=== PATIENT | female | born 1985 | race Caucasian/White ===

== ENCOUNTER → 2016-06-29 | Outpatient (CLI) | payer OTHER | LOC: MW.CHOBGYN 08:29 | PROVIDERS: ATTEND Nurse Practitioner Women's Health | DX: E03.9 Hypothyroidism, unspecified (principal); R53.83 Other fatigue | CPT/HCPCS: 36415; 82652; 84443 ==

== ENCOUNTER 2018-10-20 02:26 | Emergency (ER) | payer OTHER ==
[2018-10-20] MEDS ORDERED: Albuterol/Ipratropium 3.0-0.5 MG/3 ML Neb Soln ONE (02:29)
[2018-10-20] MEDS ORDERED: Albuterol/Ipratropium 3.0-0.5 MG/3 ML Neb Soln NEB ONE ×2 (02:35)
[2018-10-20] MEDS ORDERED: methylPREDNISolone Sodium Succinate 125 MG/2 ML SDV IM ONE (02:35)
--- NOTE | 2018-10-20 03:26 | CR ---
Indication: Dyspnea, asthma Technique: Chest 1 view Comparison: February 11, 2016 Findings: Cardiovascular and mediastinum: Heart size and vasculature are normal in caliber and appearance. Mediastinum is within normal limits. Lungs and pleural space: Lungs are mildly hyperexpanded. Lungs are clear. No sign of infiltrate or mass. No sign of pleural effusion. No pneumothorax. Bones and soft tissues: No significant findings. Impression: : Hyperexpanded lungs. No focal consolidation. Dictated by Katie Felton MD @ Oct 20 2018 3:24AM Signed by Dr. Katie Felton @ Oct 20 2018 3:25AM
--- NOTE | 2018-10-20 03:44 | EDM.PDOC ---
ED HPI GENERAL MEDICAL PROBLEM - General Chief Complaint: Asthma Stated Complaint: ASTHMA- TROUBLE BREATHING Time Seen by Provider: 10/20/18 03:44 - History of Present Illness INITIAL COMMENTS - FREE TEXT/NARRATIVE: HISTORY AND PHYSICAL: History of present illness: Patient 32-year-old female history of asthma presents with concern shortness of breath and wheezing she denies chest pain fever chills or other complaints Review of systems: As per history of present illness and below otherwise all systems reviewed and negative. Past medical history: As per history of present illness and as reviewed below otherwise noncontributory. Surgical history: As per history of present illness and as reviewed below otherwise noncontributory. Social history: No reported history of drug or alcohol abuse. Family history: As per history of present illness and as reviewed below otherwise noncontributory. Physical exam: HEENT: Atraumatic, normocephalic, pupils reactive, negative for conjunctival pallor or scleral icterus, mucous membranes moist, throat clear, neck supple, nontender, trachea midline. Lungs: Bilateral end expiratory wheezing noted breath sounds equal bilaterally, chest nontender. Heart: S1S2, regular, negative for clicks, rubs, or JVD. Abdomen: Soft, nondistended, nontender. Negative for masses or hepatosplenomegaly. Negative for costovertebral tenderness. Pelvis: Stable nontender. Genitourinary: Deferred. Rectal: Deferred. Extremities: Atraumatic, negative for cords or calf pain. Neurovascular unremarkable. Neuro: Awake, alert, oriented. Cranial nerves II through XII unremarkable. Cerebellum unremarkable. Motor and sensory unremarkable throughout. Exam nonfocal. Diagnostics: Chest x-ray Therapeutics: Albuterol ipratropium nebulizer Solu-Medrol 125 mg Impression: #1 asthmatic exacerbation Definitive disposition and diagnosis as appropriate pending reevaluation and review of above. Treatments [employer] IN[employer]ARD: Reports: Breathing Treatments Chest Pain Score (Numeric/FACES): 4 - Related Data Allergies Allergy/AdvReac Type Severity Reaction Status Date / Time No Known Allergies Allergy Verified 10/20/18 02:33 Home Meds: Home Meds Albuterol Sulfate [Proair Hfa] 1 - 2 puff PO ASDIRECTED 10/20/18 [History] Budesonide/Formoterol [Symbicort 160-4.5 MCG] 1 puff INH DAILY 10/20/18 [History ] Thyroid [[place] Thyroid] 60 mg PO BEDTIME 10/20/18 [History] Past Medical History HEENT History: Reports: None Cardiovascular History: Reports: None Other Cardiovascular History: During . 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 Hematologic History: Reports: None Immunologic History: Reports: None Oncologic (Cancer) History: Reports: None Dermatologic History: Reports: None - Infectious Disease History Infectious Disease History: Reports: None - Past Surgical History Head Surgeries/Procedures: Reports: None Social & Family History - Tobacco Use Smoking Status *Q: Never Smoker - Recreational Drug Use Recreational Drug Use: No ED ROS GENERAL - Review of Systems Review Of Systems: ROS reveals no pertinent complaints other than HPI. ED EXAM, GENERAL - Physical Exam Exam: See Below (See dictation) Course - Vital Signs Last Recorded V/S: Last Vital Signs Temp 35.3 C 10/20/18 02:30 Pulse 90 10/20/18 03:09 Resp 18 10/20/18 03:09 BP 139/91 H 10/20/18 03:09 Pulse Ox 100 10/20/18 03:09 - Orders/Labs/Meds Orders: Active Orders 24 hr Category Date Time Status RT Aerosol Therapy [RC] ASDIRECTED Care 10/20/18 02:35 Active Meds: Medications Discontinued Medications Generic Name Dose Route Start Last Admin Trade Name Rylee PRN Reason Stop Dose Admin Albuterol/Ipratropium Confirm 10/20/18 02:29 10/20/18 02:36 Duoneb 3.0-0.5 Mg/3 Ml Administered 10/20/18 02:30 Not Given Dose 3 ml .ROUTE .STK-MED ONE Albuterol/Ipratropium 3 ml 10/20/18 02:35 10/20/18 02:36 Duoneb 3.0-0.5 Mg/3 Ml NEB 10/20/18 02:36 3 ml ONETIME ONE Administration Albuterol/Ipratropium 3 ml 10/20/18 02:35 10/20/18 03:04 Duoneb 3.0-0.5 Mg/3 Ml NEB 10/20/18 02:36 3 ml ONETIME ONE Administration Methylprednisolone Sodium Succinate 125 mg 10/20/18 02:35 10/20/18 02:45 Solu-Medrol IM 10/20/18 02:36 125 mg ONETIME ONE Administration Departure - Departure Time of Disposition: 03:43 Disposition: Home, Self-Care 01 Condition: Good Clinical Impression: Asthma attack - Discharge Information Referrals: PCP,None [Primary Care Provider] - Additional Instructions: The following information is given to patients seen in the emergency department who are being discharged to home. This information is to outline your options for follow-up care. We provide all patients seen in our emergency department with a follow-up referral. The need for follow-up, as well as the timing and circumstances, are variable depending upon the specifics of your emergency department visit. If you don't have a primary care physician on staff, we will provide you with a referral. We always advise you to contact your personal physician following an emergency department visit to inform them of the circumstance of the visit and for follow-up with them and/or the need for any referrals to a consulting specialist. The emergency department will also refer you to a specialist when appropriate. This referral assures that you have the opportunity for followup care with a specialist. All of these measure are taken in an effort to provide you with optimal care, which includes your followup. Under all circumstances we always encourage you to contact your private physician who remains a resource for coordinating your care. When calling for followup care, please make the office aware that this follow-up is from your recent emergency room visit. If for any reason you are refused follow-up, please contact the [facility] emergency department at and asked to speak to the emergency department charge nurse. Medrol as prescribed continue current medications return as needed as discussed - My Orders Last 24 Hours: My Active Orders 10/20/18 02:35 RT Aerosol Therapy [RC] ASDIRECTED - Assessment/Plan Last 24 Hours: My Active Orders 10/20/18 02:35 RT Aerosol Therapy [RC] ASDIRECTED
[2018-10-20 04:19] VITALS: BP 150/96
== END 2018-10-20 03:45 | disposition home or self-care (01) ==
LOC: MW.ED 02:26
DX: J45.901 Unspecified asthma with (acute) exacerbation (principal); Z79.51 Long term (current) use of inhaled steroids; Z79.899 Other long term (current) drug therapy
CPT/HCPCS: 71045; 94640; 96372; 99285; J2930; J7620-GY

== ENCOUNTER 2021-08-01 15:32 | Emergency (ER) | payer OTHER ==
[2021-08-01] MEDS ORDERED: Albuterol/Ipratropium 3.0-0.5 MG/3 ML Neb Soln NEB ONE ×5 (15:41→16:39)
[2021-08-01] MEDS ORDERED: methylPREDNISolone Sodium Succinate 125 MG/2 ML SDV IM ONE (15:42)
[2021-08-01 17:17] VITALS: BP 138/82; PULSE 82
== END 2021-08-01 17:12 | disposition home or self-care (01) ==
LOC: MW.ED 15:32
DX: J45.901 Unspecified asthma with (acute) exacerbation (principal)
CPT/HCPCS: 71045; 96372; 99285; J2930; J7620-GY

== ENCOUNTER 2022-03-31 09:42 | Emergency (ER) | payer OTHER ==
[2022-03-31 10:07] VITALS: BP 185/87; PULSE 87
[2022-03-31 11:35] LABS: BLOOD UREA NITROGEN,BUN 12 mg/dL (7.0-18.0); CARBON DIOXIDE,CO2 22.3 mmol/L (21.0-32.0); CHLORIDE,CL 107 mmol/L (98-107); GLUCOSE RANDOM 114 mg/dL (74-106); SODIUM,NA 139 mmol/L (136-145)
[2022-03-31 11:39] LABS: ESTIMATED GFR 97 mL/min (>60)
== END 2022-03-31 15:01 | disposition home or self-care (01) ==
LOC: MW.ED 09:42
DX: I10 Essential (primary) hypertension (principal); J45.909 Unspecified asthma, uncomplicated; Z79.899 Other long term (current) drug therapy
CPT/HCPCS: 36415; 71045; 71045-26; 80053; 80305-QW; 81025; 84484; 85027; 93005; 99284

== ENCOUNTER 2024-06-07 12:12 | Emergency (ER) | payer OTHER ==
[2024-06-07] MEDS: Sodium Chloride 0.9% 1,000 ML IV STA (12:45)
[2024-06-07] MEDS: Ondansetron 4 MG/2 ML SDV IVPUSH STA (12:45)
[2024-06-07] MEDS: Ketorolac 30 MG/ML SDV IVPUSH STA (12:46)
[2024-06-07 12:53] LABS: BASOPHILS ABSOLUTE AUTO 0.05 K/uL (0.00-0.20); BASOPHILS PERCENT AUTO 0.8 % (0.0-1.0); EOSINOPHILS ABSOLUTE AUTO 0.43 K/uL (0.00-0.45); EOSINOPHILS PERCENT AUTO 6.5 % (0.0-6.0); HEMATOCRIT 39.6 % (37.0-47.0); HEMOGLOBIN 13.2 g/dL (12.0-16.0); IMMATURE GRAN ABSOLUTE AUTO 0.01 K/uL (0.00-0.05); IMMATURE GRAN PERCENT AUTO 0.2 % (0.0-0.4); LYMPHOCYTES ABSOLUTE AUTO 1.88 K/uL (1.00-4.80); LYMPHOCYTES PERCENT AUTO 28.6 % (24.0-44.0); MEAN CORPUSCULAR HEMOGLOBIN 28.1 pg (28.0-32.0); MEAN CORPUSCULAR HGB CONC 33.3 g/dL (32.0-36.0); MEAN CORPUSCULAR VOLUME 84.4 fL (83.0-99.0); MEAN PLATELET VOLUME 9.3 fL (9.4-12.3); MONOCYTES ABSOLUTE AUTO 0.38 K/uL (0.00-0.80); MONOCYTES PERCENT AUTO 5.8 % (0.0-8.0); NEUTROPHILS ABSOLUTE AUTO 3.82 K/uL (1.80-7.70); NEUTROPHILS PERCENT AUTO 58.1 % (41.0-71.0); PLATELET COUNT,PLT 414 K/uL (150-400); RED BLOOD CELL COUNT 4.69 M/uL (4.10-5.30); WHITE BLOOD CELL COUNT,WBC 6.57 K/uL (3.9-11.3)
[2024-06-07 13:15] LABS: A/G RATIO 1.2 (0.9-1.6); ALBUMIN 4.3 g/dL (3.4-5.0); BILIRUBIN TOTAL 0.4 mg/dL (0.2-1.0); CALCIUM 9.5 mg/dL (8.5-10.1); CARBON DIOXIDE,CO2 25.9 mmol/L (21.0-32.0); CREATININE 0.8 mg/dL (0.6-1.0); EST CRCL DRUG DOSING (CG) 71.24 mL/min; POTASSIUM,K 3.7 mmol/L (3.5-5.1); PROTEIN TOTAL,TP 7.8 g/dL (6.4-8.2)
[2024-06-07 13:21] LABS: APPEARANCE,URINE CLEAR; BILIRUBIN,URINE NEGATIVE (NEGATIVE); COLOR,URINE YELLOW; GLUCOSE,URINE NEGATIVE (NEGATIVE); KETONES,URINE NEGATIVE (NEGATIVE); LEUKOCYTE ESTERASE,URINE NEGATIVE (NEGATIVE); NITRITE,URINE NEGATIVE (NEGATIVE); OCCULT BLOOD,URINE LARGE (NEGATIVE); PH,URINE 5.5 (5.0-8.0); PROTEIN,URINE 100 mg/dL (NEGATIVE); UROBILINOGEN,URINE 0.2 EU/dL (<2.0)
[2024-06-07 13:37] LABS: BACTERIA,URINE FEW (NEGATIVE); EPITHELIAL CELLS,URINE MODERATE (NONE-FEW); MUCUS,URINE MODERATE (NONE-MOD)
[2024-06-07 14:55] VITALS: BP 150/71; PULSE 61
[2024-06-07] MEDS: Iopamidol 755 Mg/ML 100 ML Bottle IVPUSH STA (15:32)
== END 2024-06-07 14:55 | disposition home or self-care (01) ==
LOC: MW.ED 12:12
DX: R31.9 Hematuria, unspecified (principal); R10.30 Lower abdominal pain, unspecified; R80.8 Other proteinuria; Z75.8 Other problems related to medical facilities and other health care; Z79.899 Other long term (current) drug therapy; Z86.16 Personal history of COVID-19
CPT/HCPCS: 36415; 74177; 80053; 81001; 83690; 84703; 85025; 96361; 96374; 96375; 99284; J1885; J2405; J7030; Q9967